=== PATIENT | male | born 1950 | race Hispanic/Latino ===

== ENCOUNTER 2019-07-10 18:16 | Emergency (ER) | payer MEDICARE ==
[~2019-07-10] VITALS: Ht 167.6 cm; Wt 77.1 kg
--- OUTSIDE RECORDS SUMMARY | 2019-07-10 18:21 | XMS REPORT ---
Author Author Admin, [place] Organization [facility] Address [address] [address] Phone Allergies, Adverse Reactions, Alerts Allergy Name Reaction Description Start Date Severity Status Provider LOSARTAN hyperkalemia Critical Active Patsy Davison MD Conditions or Problems Problem Name Problem Code Onset Date Status Entry Date Provider Comment Standard Description Annotate Vision changes 368.9 Active Patsy Davison MD Unspecified visual disturbance Abnormal urine finding 791.9 Active Patsy Davison MD Other nonspecific findings on examination of urine Hyperkalemia 276.7 Active Patsy Davison MD Hyperpotassemia CKD stage 2 (gfr 60-89) 585.2 Active Patsy Davison MD Chronic kidney disease, Stage II (mild) 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 Active Patsy Davison MD Proteinuria Anemia 285.9 Active Patsy Davison MD Anemia, unspecified Peripheral vascular disease 443.9 Active Patsy Davison MD Peripheral vascular disease, unspecified toe amputation on 01/2016 at [facility] Amputated big toe V49.71 Active Patsy Davison MD Status post amputation of great toe BMI 29.0-29.9 Active Patsy Davison MD Body Mass Index 29.0-29.9, adult Diabetes mellitus, 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 Patsy Davison MD Diabetes mellitus with neurological manifestations, type II or unspecified type, not stated as uncontrolled Encounter for immunization V05.9 Active Patsy Davison MD Need for prophylactic vaccination and inoculation against unspecified single disease Hyperlipidemia 272.4 Active Patsy Davison MD Other and unspecified hyperlipidemia Hypertension, uncontrolled 401.9 Active Patsy Davison MD Unspecified essential hypertension Overweight Active Patsy Davison MD Overweight Pedal edema 782.3 Active Patsy Davison MD Edema Screening for colon cancer V76.51 Active Patsy Davisno MD Screening for malignant neoplasms of colon Toe ulcer 707.15 Active Patsy Davison MD Ulcer of other part of foot Elevated creatinine ICD-790.4 Inactive Patsy Davison MD Hypertension 401.9 Inactive Patsy Davison MD Unspecified essential hypertension Hypertension 401.9 Inactive Patsy Davison MD Unspecified essential hypertension Hypertension, uncontrolled 401.9 Inactive Patsy Davison MD Unspecified essential hypertension Well adult exam ICD-V70.0 Inactive Patsy Davison MD Elevated creatinine 790.4 Resolved Patsy Davison MD Nonspecific elevation of levels of transaminase or lactic acid dehydrogenase [LDH] Well adult exam V70.0 Resolved Patsy Davison MD Routine general medical examination at a health care facility Medication List Medication Instructions Start Date Stop Date Generic Name NDC Status Provider Patient Instruction AMLODIPINE BESYLATE 10MG TABLETS TAKE 1 TABLET BY MOUTH DAILY AMLODIPINE BESYLATE 87344864096 Active Patsy Davison MD Active HYDROCHLOROTHIAZIDE 25MG TABLETS TAKE 1 TABLET BY MOUTH EVERY DAY HYDROCHLOROTHIAZIDE 48120865254 Active Patsy Davison MD Active FUROSEMIDE 20 MG ORAL TABLET 1 by mouth twice daily FUROSEMIDE 15817917120 Active Patsy Davison MD Active ASPIRIN 81 MG ORAL TABLET DELAYED RELEASE 1 by mouth every day ASPIRIN 75635572361 Active Patsy Davison MD Active ATORVASTATIN CALCIUM 20 MG ORAL TABLET Take 1 tablet by mouth daily ATORVASTATIN CALCIUM 49141886584 Active Patsy Davison MD Active JANUVIA 50 MG ORAL TABLET 1 By Mouth once a day SITAGLIPTIN PHOSPHATE 68201431502 Active Patsy Davison MD Active METFORMIN HCL 1000 MG ORAL TABLET 1 by mouth twice a day METFORMIN HCL 53131663954 Active Patsy Davison MD Active LISINOPRIL 10 MG ORAL TABLET 1 by mouth every day LISINOPRIL 10 MG ORAL TABLET 755565 LISINOPRIL Inactive ISOSORBIDE MONONITRATE ER 30 MG ORAL TABLET EXTENDED RELEASE 24 HOUR Take 1 tablet by mouth daily ISOSORBIDE MONONITRATE ER 30 MG ORAL TABLET EXTENDED RELEASE 24 HOUR ISOSORBIDE MONONITRATE Inactive KAYEXALATE ORAL POWDER Dissolve 15g in 2 oz of water and drink twice daily KAYEXALATE ORAL POWDER SODIUM POLYSTYRENE SULFONATE Inactive METOPROLOL SUCCINATE ER 25 MG ORAL TABLET EXTENDED RELEASE 24 HOUR 1 tab by mouth daily METOPROLOL SUCCINATE ER 25 MG ORAL TABLET EXTENDED RELEASE 24 HOUR METOPROLOL SUCCINATE Inactive FUROSEMIDE 20 MG ORAL TABLET 1 by mouth every am FUROSEMIDE 20 MG ORAL TABLET 620339 FUROSEMIDE Inactive LOSARTAN POTASSIUM 100 MG ORAL TABLET LOSARTAN POTASSIUM 100 MG ORAL TABLET 130965 LOSARTAN POTASSIUM Inactive NIFEDIPINE ER 90 MG ORAL TABLET EXTENDED RELEASE 24 HOUR 1 by mouth every day NIFEDIPINE ER 90 MG ORAL TABLET EXTENDED RELEASE 24 HOUR NIFEDIPINE Inactive LISINOPRIL 10 MG ORAL TABLET 1 by mouth every day LISINOPRIL 39598419979 No Longer Active Patsy Davison MD Active ISOSORBIDE MONONITRATE ER 30 MG ORAL TABLET EXTENDED RELEASE 24 HOUR Take 1 tablet by mouth daily ISOSORBIDE MONONITRATE 38569819279 No Longer Active Patsy Davison MD Active KAYEXALATE ORAL POWDER Dissolve 15g in 2 oz of water and drink twice daily SODIUM POLYSTYRENE SULFONATE 55669439994 No Longer Active Patsy Davison MD Active METOPROLOL SUCCINATE ER 25 MG ORAL TABLET EXTENDED RELEASE 24 HOUR 1 tab by mouth daily METOPROLOL SUCCINATE 32390522193 No Longer Active Patsy Davison MD Active FUROSEMIDE 20 MG ORAL TABLET 1 by mouth every am FUROSEMIDE 73474261980 No Longer Active Patsy Davison MD Active GLIPIZIDE ER 2.5 MG ORAL TABLET EXTENDED RELEASE 24 HOUR Take 1 tablet by mouth daily GLIPIZIDE 66192259072 No Longer Active Patsy Davison MD Active LOSARTAN POTASSIUM 100 MG ORAL TABLET LOSARTAN POTASSIUM 35454476177 No Longer Active Patsy Davison MD Active NIFEDIPINE ER 90 MG ORAL TABLET EXTENDED RELEASE 24 HOUR 1 by mouth every day NIFEDIPINE 42709430474 No Longer Active Patsy Davison MD Active Immunizations Vaccine Administration Date Value Standard Description hepatitis A immunization #1 given as Hep A/Hep B # 2. hepatitis A vaccine, unspecified formulation hepatitis B vaccine #2 given given as Hep A/Hep B # 2. hepatitis B vaccine, unspecified formulation influenza immunization #2 given influenza virus vaccine, unspecified formulation pneumococcal polysaccharide vaccine booster given pneumococcal vaccine, unspecified formulation Twinrix, hepatitis A inactivated and hepatitis B (recombinant) vaccine, 2nd dose, administered by given hepatitis B vaccine #1 given given hepatitis B vaccine, unspecified formulation influenza immunization (Flu Vax) has been administered given influenza virus vaccine, unspecified formulation PEDIATRIC PNEUMOCOCCAL VACCINE ([id number]) #1 given pneumococcal conjugate vaccine, 13 valent Tetanus toxoid, reduced diphtheria toxoid and acellular Pertussis vaccine, absorbed (TdaP) given given tetanus toxoid, reduced diphtheria toxoid, and acellular pertussis vaccine, adsorbed varicella shingles vaccine given varicella virus vaccine Vital Signs Date Name Value Unit Range Description blood pressure, diastolic, second observation 67 mm[Hg] BP izaguirre blood pressure, diastolic 67 mm[Hg] BP izaguirre blood pressure, systolic, second observation 148 mm[Hg] BP sys blood pressure, systolic 148 mm[Hg] BP sys height E&M 64 [in_us] Bdy height respiratory rate E&M 16 /min Resp rate temperature E&M 97.7 [degF] Body temperature weight E&M 175 [lb_av] Weight Measured Diagnostic Results Date Name Value Unit Range Description Lab Report: Urinalysis, Routine, Microscopic Examination, Basic Metaboli ... - Urinalysis mucus on urinalysis Present Not Estab. Lab Report: CBC With Differential/Platelet, Comp. Metabolic Panel (14), ... - Chemistry thyroid stimulating hormone, serum 1.690 u[iU]/mL 0.450-4.500 Lab Report: Urinalysis, Routine, Microscopic Examination, Basic Metaboli ... - Urinalysis WBC urine on microscopy >30 /hpf {Cells}/[HPF] 0 - 5 Lab Report: CBC With Differential/Platelet, Comp. Metabolic Panel (14), ... - Chemistry very low density lipoproteins 78 mg/dL 5-40 Lab Report: Urinalysis, Routine, Microscopic Examination, Basic Metaboli ... - Urinalysis epithelial cells, urine 0-10 /[LPF] 0 - 10 Lab Report: CBC With Differential/Platelet, Comp. Metabolic Panel (14), ... - Chemistry hepatitis B surface antigen Negative Negative chloride, serum 102 mmol/L 96-106 urea nitrogen, blood 34 mg/dL 8-27 Lab Report: Urinalysis, Routine, Microscopic Examination, Basic Metaboli ... - Urinalysis leukocyte esterase, urine, by dipstick 3+ Negative Lab Report: CBC With Differential/Platelet, Urinalysis, Routine, Microsc ... - Chemistry parathormone, serum 36 pg/mL 15-65 Lab Report: CBC With Differential/Platelet, Comp. Metabolic Panel (14), ... - Hematology mean corpuscular hemoglobin concentration, RBC 31.8 G/DL % 31.5-35.7 erythrocyte (RBC) count 3.73 X10E6/UL 10*6/mm3 4.14-5.80 Office Visit: ?glomerulonephritis/uncontrolled htn - Urinalysis nitrite, urine, semiquantitative negative Lab Report: CBC With Differential/Platelet, Comp. Metabolic Panel (14), ... - Serology hepatitis C antibody, serum <0.1 0.0-0.9 Lab Report: Urinalysis, Routine, Microscopic Examination, Basic Metaboli ... - Urinalysis urine color Yellow Yellow Lab Report: CBC With Differential/Platelet, Comp. Metabolic Panel (14), ... - Chemistry Absolute Neutrophils 4.4 X10E3/UL 10*3/uL 1.4-7.0 Lab Report: Urinalysis, Routine, Microscopic Examination, Basic Metaboli ... - Urinalysis bilirubin, urine Negative Negative Lab Report: CBC With Differential/Platelet, Comp. Metabolic Panel (14), ... - Chemistry LDL cholesterol, serum 100 mg/dL 0-99 urea nitrogen/creatinine ratio, serum 25 10-24 Lab Report: CBC With Differential/Platelet, Comp. Metabolic Panel (14), ... - Hematology mean corpuscular volume, RBC 90 fL 79-97 Internal Correspondence: Pre-Visit Planning - [facility] care front desk team member #1, name Sarah CONNELL, Nan Schumacher RN, Nancy Garvin MA, Elzbieta Chavez MA, Violeta Ruiz MA Lab Report: CBC With Differential/Platelet, Comp. Metabolic Panel (14), ... - Chemistry HDL cholesterol, serum 32 mg/dL >39 Lab Report: CBC With Differential/Platelet, Comp. Metabolic Panel (14), ... - Hematology monocytes as percent of blood leukocytes 6 % Not Estab. Lab Report: Basic Metabolic Panel (8), Prot+CreatU (Random), Hemoglobin A1c - Chemistry protein, total, 24 hour with creatinine, urine 749 mg/g{creat} 0-200 Lab Report: CBC With Differential/Platelet, Urinalysis, Routine, Microsc ... - Chemistry ferritin, serum 259 ng/mL 30-400 Lab Report: CBC With Differential/Platelet, Comp. Metabolic Panel (14), ... - Chemistry creatinine, serum 1.37 mg/dL 0.76-1.27 albumin/globulin ratio, serum 1.4 1.2-2.2 Lab Report: CBC With Differential/Platelet, Urinalysis, Routine, Microsc ... - Chemistry iron binding capacity, unsaturated 207 ug/dL 111-343 Lab Report: CBC With Differential/Platelet, Comp. Metabolic Panel (14), ... - Chemistry cholesterol, serum 210 mg/dL 056-437 2830/04/09 creatinine, random, urine 92.8 mg/dL Not Estab. bilirubin, serum, total 0.3 mg/dL 0.0-1.2 Lab Report: CBC With Differential/Platelet, Comp. Metabolic Panel (14), ... - Hematology Eosinophil Absolute Count 0.2 X10E3/UL 10*3/uL 0.0-0.4 Lab Report: Urinalysis, Routine, Microscopic Examination, Basic Metaboli ... - Urinalysis appearance, urine Clear Clear Office Visit: ?glomerulonephritis/uncontrolled htn - Urinalysis blood in urine (hemoglobin) by dipstick 1+ Lab Report: CBC With Differential/Platelet, Comp. Metabolic Panel (14), ... - Chemistry aspartate aminotransferase (SGOT), serum 11 U/L 0-40 Lab Report: CBC With Differential/Platelet, Comp. Metabolic Panel (14), ... - Hematology red blood cell distribution width 15.2 % 12.3-15.4 Lab Report: Urinalysis, Routine, Microscopic Examination, Basic Metaboli ... - Chemistry B-12, serum 273 pg/mL 211-946 Lab Report: Urinalysis, Routine, Microscopic Examination, Basic Metaboli ... - Urinalysis urinalysis, microscopic examination See below: Lab Report: CBC With Differential/Platelet, Comp. Metabolic Panel (14), ... - Hematology leukocyte count, blood 7.3 X10E3/UL 10*3/mm3 3.4-10.8 Lab Report: Urinalysis, Routine, Microscopic Examination, Basic Metaboli ... - Urinalysis pH, urine, semiquantitative 5.0 5.0-7.5 Lab Report: CBC With Differential/Platelet, Comp. Metabolic Panel (14), ... - Chemistry potassium, serum 5.4 mmol/L 3.5-5.2 immature granulocytes, percentage of total cells, blood 0 % Not Estab. albumin, serum 4.5 g/dL 3.6-4.8 Lab Report: CBC With Differential/Platelet, Comp. Metabolic Panel (14), ... - Hematology lymphocyte count, blood, automated 2.2 X10E3/UL 10*3/mm3 0.7-3.1 hematocrit, blood 33.6 % 37.5-51.0 Lab Report: CBC With Differential/Platelet, Comp. Metabolic Panel (14), ... - Chemistry sodium, serum 141 mmol/L 134-144 Lab Report: Basic Metabolic Panel (8), Urine Culture, Routine, Result - Urinalysis urine culture No growth Lab Report: CBC With Differential/Platelet, Comp. Metabolic Panel (14), ... - Hematology neutrophils as percent of blood leukocytes 61 % Not Estab. Lab Report: Urinalysis, Routine, Microscopic Examination, Basic Metaboli ... - Urinalysis casts, urine Present /[LPF] None seen Lab Report: CBC With Differential/Platelet, Comp. Metabolic Panel (14), ... - Hematology basophils as percent of blood leukocytes 1 % Not Estab. Lab Report: CBC With Differential/Platelet, Urinalysis, Routine, Microsc ... - Chemistry iron saturation percent, serum 19 % 15-55 Lab Report: Urinalysis, Routine, Microscopic Examination, Basic Metaboli ... - Chemistry specific gravity, body fluid 1.012 1.005-1.030 folate, serum 12.3 ng/mL >3.0 Lab Report: CBC With Differential/Platelet, Urinalysis, Routine, Microsc ... - Chemistry iron, serum 47 ug/dL 38-169 Lab Report: Urinalysis, Routine, Microscopic Examination, Basic Metaboli ... - Chemistry RBC, Urine 0-2 /hpf /[HPF] 0 - 2 Lab Report: Urinalysis, Routine, Microscopic Examination, Basic Metaboli ... - Urinalysis protein, urine, semiquantitative (dipstick) 2+ Negative/Trace Lab Report: CBC With Differential/Platelet, Comp. Metabolic Panel (14), ... - Serology rapid plasma reagin antibody, serum Non Reactive Non Reactive Lab Report: CBC With Differential/Platelet, Comp. Metabolic Panel (14), ... - Chemistry carbon dioxide, venous blood 19 mmol/L 18-29 Lab Report: Urinalysis, Routine, Microscopic Examination, Basic Metaboli ... - Chemistry nitrate, urine Negative Negative Lab Report: CBC With Differential/Platelet, Comp. Metabolic Panel (14), ... - Chemistry triglyceride, serum, fasting 390 mg/dL 0-149 calcium, serum 10.0 mg/dL 8.6-10.2 Lab Report: Urinalysis, Routine, Microscopic Examination, Basic Metaboli ... - Urinalysis cast type, urinalysis Hyaline casts N/A Lab Report: CBC With Differential/Platelet, Comp. Metabolic Panel (14), ... - Chemistry alanine aminotransferase (SGPT), serum 11 U/L 0-44 Lab Report: CBC With Differential/Platelet, Comp. Metabolic Panel (14), ... - Hematology mean corpuscular hemoglobin, RBC 28.7 pg 26.6-33.0 Office Visit: htn/DM/CKD - Chemistry blood glucose, fasting 150 mg/dL Lab Report: Urinalysis, Routine, Microscopic Examination, Basic Metaboli ... - Urinalysis bacteria, urine microscopy Few None seen/Few Office Visit: ?glomerulonephritis/uncontrolled htn - Urinalysis specific gravity, urine 1.020 Lab Report: CBC With Differential/Platelet, Comp. Metabolic Panel (14), ... - Chemistry protein, total, serum 7.7 g/dL 6.0-8.5 alkaline phosphatase, serum 77 U/L 39-117 Lab Report: CBC With Differential/Platelet, Comp. Metabolic Panel (14), ... - Hematology hemoglobin, blood 10.7 g/dL 13.0-17.7 lymphocytes as percent of blood leukocytes 29 % Not Estab. Lab Report: CBC With Differential/Platelet, Comp. Metabolic Panel (14), ... - Chemistry hemoglobin A1C, blood, as % of total hemoglobin 7.3 % 4.8-5.6 Lab Report: Urinalysis, Routine, Microscopic Examination, Basic Metaboli ... - Urinalysis glucose, urine, semiquantitative Negative Negative Lab Report: CBC With Differential/Platelet, Comp. Metabolic Panel (14), ... - Genetics/fertility eGFR if 61 mL/min/1.73m2 >59 Lab Report: CBC With Differential/Platelet, Comp. Metabolic Panel (14), ... - Hematology basophil count, absolute 0.0 x10E3/uL 0.0-0.2 Lab Report: CBC With Differential/Platelet, Comp. Metabolic Panel (14), ... - Chemistry globulin, serum 3.2 1.5-4.5 Estimated Glomerular Filtration Rate (calc) 53 mL/min/1.73m2 >59 Lab Report: Urinalysis, Routine, Microscopic Examination, Basic Metaboli ... - Basic Occult Blood, urine Negative Negative Lab Report: CBC With Differential/Platelet, Urinalysis, Routine, Microsc ... - Chemistry vitamin D 25-hydroxy, serum 29.6 ng/mL 30.0-100.0 Lab Report: CBC With Differential/Platelet, Comp. Metabolic Panel (14), ... - Urinalysis microalbumin/total urine volume 321.0 mg/L Not Estab. Lab Report: CBC With Differential/Platelet, Comp. Metabolic Panel (14), ... - Hematology eosinophils as percent of blood leukocytes 3 % Not Estab. Lab Report: CBC With Differential/Platelet, Comp. Metabolic Panel (14), ... - Chemistry blood glucose, random 136 mg/dL 65-99 Lab Report: CBC With Differential/Platelet, Urinalysis, Routine, Microsc ... - Chemistry iron binding capacity, total 254 ug/dL 250-450 Lab Report: Basic Metabolic Panel (8), Prot+CreatU (Random), Hemoglobin A1c - Chemistry protein, total urine random 63.2 mg/dL Not Estab. Lab Report: Urinalysis, Routine, Microscopic Examination, Basic Metaboli ... - Urinalysis urobilinogen, urine, semiquantitative (dipstick) 0.2 0.2-1.0 Lab Report: CBC With Differential/Platelet, Comp. Metabolic Panel (14), ... - Hematology monocyte count, blood, automated 0.5 X10E3/UL 10*3/uL 0.1-0.9 platelet count 321 X10E3/UL 10*3/mm3 150-379 Lab Report: Urinalysis, Routine, Microscopic Examination, Basic Metaboli ... - Urinalysis ketones, urine, by test strip Negative Negative Encounters Date Encounter Provider Code Facility 10:57:35 CDT Est Patient Detailed - [id number] Patsy Davison MD CPT-23096 [facility] 08:43:28 CDT Est Patient Detailed - [id number] Patsy Davison MD CPT-71838 [facility] 10:55:16 CDT Est Patient Detailed - 74319 Patsy Davison MD CPT-69936 [facility] 08:38:46 CDT Est Patient Detailed - [id number] Patsy Davison MD CPT-47487 [facility] 14:31:29 CDT Est Patient Detailed - [id number] Patsy Davison MD CPT-94778 [facility] 13:43:42 CDT Est Patient Detailed - [id number] Patsy Davison MD CPT-96082 [facility] 15:03:56 CDT Est Patient Detailed - 44439 Patsy Davison MD CPT-35295 [facility] 13:43:38 CDT Est Patient Detailed - [id number] Patsy Davison MD CPT-25900 [facility] 11:05:52 CDT Est Patient Detailed - [id number] Patsy Davison MD CPT-01706 [facility] 10:48:39 [employer]OOK RETAILER New Patient Detailed - 73534 Patsy Davison MD CPT-09379 [facility] Procedures Code Procedure Name Date Entry Date Standard Description CPT-01904 Hepatitis B - Adult 10:57:11 CDT CPT-24819 Pneumovax Vaccine PPSV23 10:57:11 CDT CPT-50082 INFLUENZA VACCINE QUADRIVALENT 3 YRS PLUS IM 10:57:11 CDT CPT-26939 INFLUENZA VACCINE QUADRIVALENT 3 YRS PLUS IM 10:48:57 [employer] RETAILER CPT-31916 TDAP 10:48:57 BOOK RETAILER CPT-81546 Zoster - Shingles 10:48:57 BOOK RETAILER CPT-80801 Prevnar (PCV13) IM 10:48:57 [employer] RETAILER CPT-55573 Hepatitis B - Adult 10:48:57 BOOK RETAILER CPT-71948 New Patient Well Exam (65 & Over) - [id number] 10:48:41 BOOK RETAILER
[2019-07-10] MEDS ORDERED: CLONIDINE HCL 0.1 MG TAB PO ONE (19:15)
[2019-07-10] MEDS ORDERED: INSULIN REGULAR, HUMAN 100 UNIT/1 ML 3ML VIAL SQ ONE (19:15)
[2019-07-10] MEDS ORDERED: SODIUM CHLORIDE 0.9% 1000ML 1,000 ML IV SCH (19:15)
--- NOTE | 2019-07-10 20:16 | Diagnostic Imaging Report ---
EXAMINATION: Head CT without contrast. HISTORY:Altered mental status, confusion, high blood pressure. COMPARISON:None. TECHNIQUE: Multidetector axial images were obtained from the foramen magnum to the vertex without contrast. The images were reconstructed using brain and bone algorithms. Thin section brain images were reformatted into coronal and sagittal planes. Dose modulation, iterative reconstruction, and/or weight based adjustment of the mA/kV was utilized to reduce the radiation dose to as low as reasonably achievable. Intravenous contrast: None IMAGE QUALITY: Suboptimal evaluation due to motion-related streak artifacts. FINDINGS: Skull/scalp: No lytic or blastic. lesions. No surgical changes. Parenchyma: Nonspecific supratentorial white matter patchy hypodensity are likely related to small vessel ischemic changes. Punctate hypodensity in right putamen represents chronic lacunar infarct. No acute hemorrhage, mass or acute major vascular territorial infarct. Arteries: No density suggestive of thrombosis. Dural sinuses: No abnormal density suggestive of thrombosis. Ventricles: No hydrocephalus or displacement. Extra-axial spaces: No abnormal density. Brain volume: Mild generalized cerebral volume loss. Craniocervical junction: No mass, Chiari malformation, or basilar invagination. Sella: No mass. Paranasal/mastoid sinuses: Imaged portions unremarkable. IMPRESSION: Suboptimal evaluation due to motion artifacts, despite the limitation no gross acute intracranial abnormality. Mild supratentorial white matter microvascular ischemic changes. Mild generalized cerebral volume loss. Signed by: Dr. Lizeth Perez M.D. on 07/10/2019 8:13 PM
--- NOTE | 2019-07-10 20:17 | Diagnostic Imaging Report ---
EXAMINATION: CXR 2 VIEW - HOPD INDICATION: confusion COMPARISON: None FINDINGS: PA and lateral views TUBES and LINES: None. LUNGS: Lungs are well inflated. There is no evidence of pneumonia or pulmonary edema. PLEURA: No pleural effusion or pneumothorax. HEART AND MEDIASTINUM: The cardiomediastinal silhouette is unremarkable. BONES AND SOFT TISSUES: No acute osseous lesion. Soft tissues are unremarkable. UPPER ABDOMEN: No free air under the diaphragm. IMPRESSION: No acute thoracic abnormality. Signed by: Saw Verduzco MD on 07/10/2019 8:14 PM
[2019-07-10] MEDS ORDERED: ACETAMINOPHEN 325 MG TAB PO ONE (21:00)
[2019-07-10] MEDS ORDERED: JANUVIA100 MG PO (21:28)
[2019-07-10] MEDS ORDERED: METFORMIN HCL500 MG PO (21:30)
[2019-07-10] MEDS ORDERED: AMLODIPINE BESY10 MG PO (21:31)
--- NOTE | 2019-07-10 21:40 | NUR ---
{null, DC'D IVSL WITHOUT DIFF. PT TOLERATED WELL. NO REDNESS/SWELLING/BLEEDING FROM SITE. CATH INTACT. }
[2019-07-10 21:50] VITALS: BP 108/55
== END 2019-07-10 21:48 | disposition home or self-care (01) ==
LOC: FSED 18:16
DX: R50.9 Fever, unspecified (principal); E86.0 Dehydration; E11.65 Type 2 diabetes mellitus with hyperglycemia; B34.9 Viral infection, unspecified; I10 Essential (primary) hypertension; E78.5 Hyperlipidemia, unspecified; D64.9 Anemia, unspecified
CPT/HCPCS: 36415; 70450; 71046; 80053; 81003; 82553; 82948; 84484; 85025; 87400; 93005; 96372; 99284; J1817; J7030